=== PATIENT | female | born 1940 ===

== ENCOUNTER 2017-05-20 19:58 | Inpatient (IN) | payer MEDICARE, MEDICAID ==
[2017-05-20 19:59] VITALS: PULSE 115; BMI 29.9
[2017-05-20 20:31] LABS: BASO # 0.1 K/uL (0.0-0.2); EOS % 0.3 % (0.0-4.0); HEMOGLOBIN 12.2 g/dL (11.0-16.0); LYMPH # 1.6 K/uL (1.0-4.3); MEAN CELL VOLUME 96.7 fL (81.0-99.0); MEAN CORPUSCULAR HEMOGLOBIN 30.3 pg (27.0-31.0); MEAN CORPUSCULAR HGB CONC 31.3 g/dL (33.0-37.0); MEAN PLATELET VOLUME 9.7 fL (7.2-11.7); MONO # 1.1 K/uL (0.0-0.8); MONO % 7.9 % (0.0-10.0); NEUT # 10.7 K/uL (1.8-7.0); NEUT % 78.8 % (50.0-75.0); NRBC % 0.3 % (0.0-2.0); RBC 4.04 Mil/uL (3.80-5.20); RED CELL DISTRIBUTION WIDTH 16.2 % (11.5-14.5); WHITE BLOOD COUNT 13.6 K/uL (4.8-10.8)
[2017-05-20 20:43] LABS: ALB/GLOB RATIO 1.2 (1.0-2.1); ALBUMIN 4.1 g/dL (3.5-5.0); ALT/SGPT 128 U/L (9-52); AST/SGOT 90 U/L (14-36); BLOOD UREA NITROGEN 27 mg/dL (7-17); CALCIUM 8.6 mg/dl (8.6-10.4); GFR AFRICAN-AMERICAN > 60; GFR NON-AFRICAN AMERICAN > 60; LIPASE 124 U/L (23-300)
[2017-05-20] MEDS ORDERED: Sodium Chloride 0.9% 1,000 ML IV STA (20:48)
[2017-05-20] MEDS ORDERED: Piperacill/Tazo 4.5gm in Dex 4.5 GM/100 ML BAG IVPB STA (20:48)
--- NOTE | 2017-05-20 21:09 | C.PDOC ---
History Of Present Illness 77 y/o F c PMHx HTN, DM p/w abdominal pain x 1 day. Pain is diffuse, constant, nonradiating. Also reports cough. She denies fever, chills, chest pain, dyspnea , diarrhea. Time Seen by Provider: 05/20/17 20:33 Chief Complaint (Nursing): Abdominal Pain Past Medical History Vital Signs: Last Vital Signs Temp 98.6 F 05/20/17 21:41 Pulse 92 H 05/20/17 22:07 Resp 28 H 05/20/17 22:07 BP 129/87 05/20/17 22:07 Pulse Ox 99 05/20/17 22:07 - Medical History PMH: Arthritis, Asthma, Atrial Fibrillation, CHF, Diabetes, Gastritis, Gall Bladder Disease (s/p surgery), HTN, Hypercholesterolemia, Osteoporosis, Pneumonia Denies: Alzheimer's Disease, HIV, Chronic Kidney Disease Surgical History: Cholecystectomy - [facility] Procedures ASSISTANCE WITH RESPIRATORY VENTILATION, 24-96 HRS, CPAP (03/07/17) CORNEAL REPAIR NEC (02/07/13) INSERTION OF ENDOTRACHEAL AIRWAY INTO TRACHEA, VIA OPENING (03/07/17) INTRODUCE OF OTH THERAP SUBST INTO RESP TRACT, VIA OPENING (04/10/17) PTERYGIUM EXCISION NEC (02/07/13) RESPIRATORY VENTILATION, 24-96 CONSECUTIVE HOURS (03/07/17) Family History: States: Unknown Family Hx - Social History Hx Alcohol Use: No Hx Substance Use: No - Immunization History Hx Tetanus Toxoid Vaccination: Yes Hx Influenza Vaccination: Yes Hx Pneumococcal Vaccination: Yes Review Of Systems Except As Marked, All Systems Reviewed And Found Negative. Constitutional: Negative for: Fever Cardiovascular: Negative for: Chest Pain Physical Exam - Physical Exam Additional Physical Exam Comments: Constitutional: Appears short of breath. Head: Normocephalic. Atraumatic. Eyes: PERRL. EOMI. ENT: Moist mucous membranes. Neck: Supple. Cardiovascular: Tachycardic rate. Radial pulses 2+ bilaterally. Chest: No tenderness. Respiratory: Rhonchi bilaterally. GI: Soft. Tender diffusely. Distended. Umbilical hernia. Back: No CVA tenderness. Musculoskeletal: No tenderness of extremities. Skin: No rash. Neurologic: Alert, no focal deficit. ED Course And Treatment - Laboratory Results Result Diagrams: 05/20/17 20:28 05/20/17 20:28 Medical Decision Making Medical Decision Making: Patient found to be hypoxic on room air. Placed on NRB with pulse ox correcting to 100%. Lactate improved from 6 to 3. HR improved. Patient now on nasal cannula. Ordered BiPap initially but patient refused. Pending CT. Antibiotics empirically given as well as Lasix for CHF. Signed out to ED night team pending CT and disposition for admission. Disposition - Disposition Disposition Time: 01:04 Condition: FAIR Forms: [facility] (Y[place]i) - Clinical Impression Clinical Impression: CHF exacerbation
[2017-05-20 21:26] LABS: SQUAMOUS EPITHIAL 5 /hpf (0-5); URINE BACTERIA RARE (<OCC); URINE BILIRUBIN NEGATIVE (NEGATIVE); URINE CLARITY Hazy (Clear); URINE COLOR Amber (YELLOW); URINE GLUCOSE (UA) 1+ mg/dL (Normal); URINE HYALINE CAST >20 /lpf (0-2); URINE LEUKOCYTE ESTERASE NEG Leu/uL (Negative); URINE NITRATE NEGATIVE (NEGATIVE); URINE PROTEIN 3+ mg/dL (NEGATIVE)
[2017-05-20 21:27] LABS: URINE BLOOD 1+ (NEGATIVE)
[2017-05-20 21:29] LABS: B-TYPE NATRIURETIC PEPTIDE 6670 pg/mL (0-900)
[2017-05-20] MEDS ORDERED: Iodixanol 320 MG/ML 100 ML BOTTLE IV ONE (22:12)
[2017-05-21 00:47] LABS: VENOUS BLOOD GAS BASE EXCESS -0.5 mmol/L (0.0-2.0); VENOUS BLOOD GAS PCO2 51 mmHg (40-60); VENOUS BLOOD GAS PO2 35 mm/Hg (30-55); VENOUS BLOOD PH 7.32 (7.32-7.43)
--- NOTE | 2017-05-21 01:42 | CT ---
EXAM: CT Chest With Intravenous Contrast CT Abdomen and Pelvis With Intravenous Contrast EXAM DATE/TIME: 05/20/2017 8:40 PM CLINICAL HISTORY: 77 years old, female; Pain and signs and symptoms; Abdominal tenderness; Abdominal pain; Shortness of breath; Chest pain; Additional info: Hypoxia, rhonchi, abd pain, nausea TECHNIQUE: Axial computed tomography images of the chest, abdomen and pelvis with intravenous contrast. All CT scans at this facility use one or more dose reduction techniques, viz.: automated exposure control; ma/kV adjustment per patient size (including targeted exams where dose is matched to indication; i.e. head); or iterative reconstruction technique. All CT scans at this facility use one or more dose reduction techniques, viz.: automated exposure control; ma/kV adjustment per patient size (including targeted exams where dose is matched to indication; i.e. head); or iterative reconstruction technique. Coronal and sagittal reformatted images were created and reviewed. CONTRAST: 100 mL of VISI administered intravenously. COMPARISON: No relevant prior studies available. FINDINGS: LIMITATIONS: Moderate streak/motion artifact. CHEST: LUNGS: Scattered, patchy areas of consolidation in the lungs bilaterally, greatest in the left upper lobe and in the right lower lobe, suspicious for a patchy bilateral pneumonia. PLEURAL SPACE: Small right pleural effusion. No pneumothorax is seen. HEART: Heart appears moderately to markedly enlarged. Small amount of fluid in the pericardium on the right, with no evidence of a large circumferential pericardial effusion. Coronary artery calcification. THYROID: Bilateral thyroid nodules incidentally noted. At least 2 are seen, the larger of which measures 6 mm. No followup is necessary for thyroid lesions less than 10 mm, unless otherwise clinically indicated. ABDOMEN: LIVER: Fatty infiltration of the liver. GALLBLADDER AND BILE DUCTS: Cholecystectomy clips. Biliary ductal dilatation, which may be related to the post cholecystectomy state. No radiopaque common bile duct stones are visualized. Recommend correlation with LFTs as clinically indicated. PANCREAS: Small amount of fluid in the right retroperitoneum. This abuts the duodenum, which appears thick walled. It also abuts the pancreatic head. It could be secondary to either duodenitis or acute pancreatitis, involving the pancreatic head. No evidence of diffuse peripancreatic fluid. No evidence of duodenal perforation. SPLEEN: No acute abnormality of the spleen identified. ADRENALS: No acute abnormality of the adrenal glands. KIDNEYS AND URETERS: Bilateral renal scarring. No evidence of hydroureteronephrosis. STOMACH AND BOWEL: Bowel is suboptimally evaluated, due to motion artifact. Small bowel dilatation is noted. Multiple mildly dilated small bowel loops are seen, mainly proximal and mid small bowel loops, and there are multiple decompressed distal small bowel loops seen. Findings are suspicious for a small bowel obstruction. Transition point is probably seen, in a small bowel loop in the right anterior pelvis, where there is a change in caliber of the small bowel, followed by multiple decompressed distal small bowel loops. No definite mass is identified at the transition point. There is no evidence of focal enteritis of the transition point. An adhesive small bowel obstruction could have this appearance. No other definite abnormality of the bowel is seen, allowing for motion artifact. APPENDIX: Appendix is seen, and is within normal limits in appearance. PELVIS: BLADDER: Catheter noted within the bladder lumen. REPRODUCTIVE: Small calcification in the uterus, most likely representing a calcified fibroid. No evidence of large adnexal masses. CHEST, ABDOMEN and PELVIS: INTRAPERITONEAL SPACE: Small amount of free fluid in the abdomen and pelvis. No evidence of free air. BONES/JOINTS: Multiple chronic-appearing vertebral compression fractures. Bony structures appear demineralized. SOFT TISSUES: Mild, diffuse subcutaneous edema/anasarca. VASCULATURE: No evidence of abdominal aortic aneurysm or dissection. LYMPH NODES: No evidence of diffuse lymphadenopathy. IMPRESSION: - Small bowel dilatation, suspicious for a small bowel obstruction. Please see above for a full description. - Small amount of fluid in the right retroperitoneum, which could be secondary to either duodenitis or mild acute pancreatitis, involving the pancreatic head. Recommend correlation with pancreatic enzyme values. - Lung findings suspicious for a patchy bilateral pneumonia. - Small amount of pelvic and abdominal fluid. - Small right pleural effusion. - Diffuse subcutaneous edema/anasarca. - Cardiomegaly. - See above for remaining findings.
[2017-05-21] MEDS ORDERED: Vancomycin 1 gm/NS 200 ml 1 GM/200 ML BAG IVPB STA (03:02)
--- NOTE | 2017-05-21 03:34 | CP.PCM.CON ---
History of Present Illness - History of Present Illness History of Present Illness: General Surgery Consult Note for Dr. Quinones This is a 77F with a PMH of chronic AFib, DM2, HTN, HLD, PVD who presents complaining of abdominal pain. Patient reports a history of abdominal pain for "some time" that got worse to the point that she couldn't tolerate the pain yesterday, prompting her ED visit. Pain was initially in the epigastric area and then became diffuse. Patient has a history of chronic constipation and gastritis; last bowel movement was yesterday. Her bowel movements are normally long and stringy. She has passed gas while in the the ED but states that passing gas is difficult. She felt nauseous yesterday when the pain was particularly intense, but denies any nausea or vomiting right now. Patient notes that her last EGD/colonoscopy was in 2011; results showed gastritis/H. pylori. Patient is Faroese-speaking only and is a poor historian. Translation obtained via nurse at bedside. PMH: chronic AFib, DM2, HTN, HLD, PVD, arthritis, cataracts, glaucoma P[place]: [place] [place] chole[place] ([facility]), eye surgery for cataracts/ glaucoma, EGD/colonoscopy (2011) Medications: Allegies: NKDA Review of Systems - Review of Systems All systems: reviewed and no additional remarkable complaints except - Respiratory Respiratory: Cough - Gastrointestinal Gastrointestinal: Abdominal Pain, Bloating, Constipation, Nausea. absent: Diarrhea, Hematemesis, Hematochezia, Temesmus, Vomiting Past Patient History - Infectious Disease Hx of Infectious Diseases: None - Tetanus Immunizations Tetanus Immunization: Unknown - Past Medical History & Family History Past Medical History?: Yes - Past Social History Smoking Status: Never Smoked - CARDIAC Hx Atrial Fibrillation: Yes Hx Congestive Heart Failure: Yes Hx Hypercholesterolemia: Yes Hx Hypertension: Yes - PULMONARY Hx Asthma: Yes Hx Pneumonia: Yes - NEUROLOGICAL Hx Alzheimer's Disease: No - HEENT Hx HEENT Problems: Yes Hx Cataracts: Yes (left eye) Hx Glaucoma: Yes - RENAL Hx Chronic Kidney Disease: No - ENDOCRINE/METABOLIC Hx Endocrine Disorders: Yes Hx Diabetes Mellitus Type 2: Yes - HEMATOLOGICAL/ONCOLOGICAL Hx Human Immunodeficiency Virus (HIV): No - INTEGUMENTARY Hx Dermatological Problems: No - MUSCULOSKELETAL/RHEUMATOLOGICAL Hx Arthritis: Yes Hx Osteoporosis: Yes - GASTROINTESTINAL Hx Gall Bladder Disease: Yes (s/p surgery) Hx Gastritis: Yes - GENITOURINARY/GYNECOLOGICAL Hx Genitourinary Disorders: No - PSYCHIATRIC Hx Substance Use: No - SURGICAL HISTORY Hx Cholecystectomy: Yes - ANESTHESIA Hx Anesthesia: Yes Hx Anesthesia Reactions: No Hx Malignant Hyperthermia: No Meds Allergies/Adverse Reactions: Allergies Allergy/AdvReac Type Severity Reaction Status Date / Time No Known Allergies Allergy Verified 05/20/17 20:18 - Medications Medications: Current Medications Vancomycin/Sodium Chloride (Vancomycin 1 Gm/Ns 200 Ml) 1 gm in 200 mls @ 133.333 mls/hr IVPB STAT STA Stop: 05/21/17 04:31 Last Admin: 05/21/17 03:07 Dose: 133.333 mls/hr Physical Exam - Constitutional Appears: Non-toxic, No Acute Distress - Head Exam Head Exam: ATRAUMATIC, NORMOCEPHALIC - Eye Exam Eye Exam: EOMI, Normal appearance - ENT Exam ENT Exam: Mucous Membranes Moist - Respiratory Exam Respiratory Exam: Rhonchi, NORMAL BREATHING PATTERN - Cardiovascular Exam Cardiovascular Exam: +S1, +S2 - GI/Abdominal Exam GI & Abdominal Exam: Distended, Hernia, Soft. absent: Guarding, Rebound, Rigid , Tenderness Additional comments: reducible 0.5-1cm umbilical hernia - Neurological Exam Neurological exam: Alert, Oriented x3 - Psychiatric Exam Psychiatric exam: Normal Affect, Normal Mood - Skin Skin Exam: Dry, Intact Results - Vital Signs Recent Vital Signs: Last Vital Signs Temp 98.6 F 05/20/17 21:41 Pulse 92 H 05/20/17 22:07 Resp 28 H 05/20/17 22:07 BP 129/87 05/20/17 22:07 Pulse Ox 99 05/20/17 22:07 - Labs Result Diagrams: 05/20/17 20:28 05/20/17 20:28 Labs: Laboratory Results - last 24 hr 05/20/17 05/20/17 05/20/17 20:28 20:28 20:28 WBC 13.6 H RBC 4.04 Hgb 12.2 Hct 39.0 MCV 96.7 MCH 30.3 MCHC 31.3 L RDW 16.2 H Plt Count 235 MPV 9.7 Neut % (Auto) 78.8 H Lymph % (Auto) 12.0 L Weak[place] % (Auto) 7.9 Eos % (Auto) 0.3 Baso % (Auto) 1.0 Neut # 10.7 H Lymph # 1.6 Weakley # 1.1 H Eos # 0.0 Baso # 0.1 pO2 VBG pH VBG pCO2 VBG HCO3 VBG Total CO2 VBG O2 Sat (Calc) VBG Base Excess VBG Potassium Glucose Lactate Sodium 130 L Potassium 4.4 Chloride 92 L Carbon Dioxide 19 L Anion Gap 23 H BUN 27 H Creatinine 0.9 Est GFR ( Amer) > 60 Est GFR (Non-Af Amer) > 60 Random Glucose 298 H Lactic Acid 6.5 H* Calcium 8.6 Total Bilirubin 0.9 AST 90 H D ALT 128 H Alkaline Phosphatase 166 H D Troponin I < 0.0120 NT-Pro-B Natriuret Pep 6670 H Total Protein 7.6 Albumin 4.1 Globulin 3.5 Albumin/Globulin Ratio 1.2 Lipase 124 Venous Blood Potassium Urine Color Urine Clarity Urine pH Ur Specific [place] Urine Protein Urine Glucose (UA) Urine Ketones Urine Blood Urine Nitrate Urine Bilirubin Urine Urobilinogen Ur Leukocyte Esterase Urine WBC (Auto) Urine RBC (Auto) Ur Squamous Epith Cells Ur Transition Epith Cell Urine Bacteria Hyaline Casts Influenza Typ A,B (EIA) 05/20/17 05/20/17 05/21/17 21:20 21:51 00:40 WBC RBC Hgb Hct MCV MCH MCHC RDW Plt Count MPV Neut % (Auto) Lymph % (Auto) Weak[place] % (Auto) Eos % (Auto) Baso % (Auto) Neut # Lymph # Weak[place] # Eos # Baso # pO2 35 VBG pH 7.32 VBG pCO2 51 VBG HCO3 23.6 VBG Total CO2 27.9 VBG O2 Sat (Calc) 69.0 H VBG Base Excess -0.5 L VBG Potassium 3.8 Glucose 246 H Lactate 3.1 H Sodium 137.0 Potassium Chloride 100.0 Carbon Dioxide Anion Gap BUN Creatinine Est GFR ( Amer) Est GFR (Non-Af Amer) Random Glucose Lactic Acid Calcium Total Bilirubin AST ALT Alkaline Phosphatase Troponin I NT-Pro-B Natriuret Pep Total Protein Albumin Globulin Albumin/Globulin Ratio Lipase Venous Blood Potassium 3.8 Urine Color Margy Urine Clarity Hazy Urine pH 5.0 Ur Specific [place] 1.018 Urine Protein 3+ H Urine Glucose (UA) 1+ Urine Ketones Negative Urine Blood 1+ H Urine Nitrate Negative Urine Bilirubin Negative Urine Urobilinogen 2.0 H Ur Leukocyte Esterase Neg Urine WBC (Auto) 3 Urine RBC (Auto) 7 H Ur Squamous Epith Cells 5 Ur Transition Epith Cell < 1 Urine Bacteria Rare Hyaline Casts >20 H Influenza Typ A,B (EIA) Negative for flu a/b - Imaging and Cardiology CT scan - abdomen Status: Image reviewed by me, Report reviewed by me Assessment & Plan - Assessment and Plan (Free Text) Assessment: 77F presenting with obstructive symptoms NPO Gentle hydration per primary team Replace electrolytes as needed Avoid opiates if possible Serial Abdominal Exams Medical management By Primary Team If nausea or vomiting develops will place NGT D/W Dr. Joni Centeno PGY2
--- NOTE | 2017-05-21 04:33 | CP.PCM.HP ---
<Yessica Luna - Last Filed: 05/21/17 09:03> History of Present Illness - History of Present Illness History of Present Illness: Medicine Note for Hospitalist Service CC: productive cough and abdominal pain HPI: 77 yo Female with PMHx Atrial fibrillation, Hypertension, Dyslipidemia, DM and PVD presents to the ED with productive cough and abdominal pain x 3-5 days. Patient admitted to having fever, chills, headaches, productive cough with yellow phlegm, abdominal pain, nausea, constipation (last BM in 2 days, usually has a daily BM). Patient reports she can pass gas, but feels significant abdominal pain. She did not receive the flu vaccine in 2017, denied any sick contacts, and she lives alone at home. Patient was recently hospitalized in [place] in 04/2017. Denied n/v/d, or urinary symptoms. PMHx: Atrial fibrillation, Hypertension, Dyslipidemia, DM, Constipation and PVD. Last EGD/colonoscopy was in 2011; results showed gastritis/H. pylori. PSHx: ([facility] [place]), cholecystectomy ([place]), eye surgery for cataracts/ glaucoma, EGD/colonoscopy (2011) Meds: Patient does not have a list with her, does not know what she takes All: NKDA SHx: Denied x 3 FHx: Unremarkable Present on Admission - Present on Admission Any Indicators Present on Admission: No Past Patient History - Infectious Disease Hx of Infectious Diseases: None - Tetanus Immunizations Tetanus Immunization: Unknown - Past Medical History & Family History Past Medical History?: Yes - Past Social History Smoking Status: Never Smoked - CARDIAC Hx Atrial Fibrillation: Yes Hx Congestive Heart Failure: Yes Hx Hypercholesterolemia: Yes Hx Hypertension: Yes - PULMONARY Hx Asthma: Yes Hx Pneumonia: Yes - NEUROLOGICAL Hx Alzheimer's Disease: No - HEENT Hx HEENT Problems: Yes Hx Cataracts: Yes (left eye) Hx Glaucoma: Yes - RENAL Hx Chronic Kidney Disease: No - ENDOCRINE/METABOLIC Hx Endocrine Disorders: Yes Hx Diabetes Mellitus Type 2: Yes - HEMATOLOGICAL/ONCOLOGICAL Hx Human Immunodeficiency Virus (HIV): No - INTEGUMENTARY Hx Dermatological Problems: No - MUSCULOSKELETAL/RHEUMATOLOGICAL Hx Arthritis: Yes Hx Osteoporosis: Yes - GASTROINTESTINAL Hx Gall Bladder Disease: Yes (s/p surgery) Hx Gastritis: Yes - GENITOURINARY/GYNECOLOGICAL Hx Genitourinary Disorders: No - PSYCHIATRIC Hx Substance Use: No - SURGICAL HISTORY Hx Cholecystectomy: Yes - ANESTHESIA Hx Anesthesia: Yes Hx Anesthesia Reactions: No Hx Malignant Hyperthermia: No Meds Allergies/Adverse Reactions: Allergies Allergy/AdvReac Type Severity Reaction Status Date / Time No Known Allergies Allergy Verified 05/20/17 20:18 Physical Exam - Constitutional Appears: Toxic, Confused - Head Exam Head Exam: NORMAL INSPECTION, NORMOCEPHALIC - Eye Exam Eye Exam: EOMI, Normal appearance, PERRL Pupil Exam: NORMAL ACCOMODATION - ENT Exam ENT Exam: Mucous Membranes Dry - Respiratory Exam Respiratory Exam: Decreased Breath Sounds, Wheezes - Cardiovascular Exam Cardiovascular Exam: Tachycardia - GI/Abdominal Exam GI & Abdominal Exam: Distended, Normal Bowel Sounds, Soft, Tenderness - Extremities Exam Extremities exam: Positive for: normal inspection, pedal pulses present. Negative for: pedal edema, tenderness - Neurological Exam Neurological exam: Alert, CN II-XII Intact - Skin Skin Exam: Dry, Intact, Normal Color, Warm Results - Vital Signs Recent Vital Signs: Last Vital Signs Temp 98.6 F 05/21/17 03:57 Pulse 98 H 05/21/17 03:57 Resp 22 05/21/17 03:57 BP 118/82 05/21/17 03:57 Pulse Ox 97 05/21/17 03:57 - Labs Result Diagrams: 05/21/17 05:38 05/20/17 20:28 Labs: Laboratory Results - last 24 hr 05/20/17 05/20/17 05/20/17 20:28 20:28 20:28 WBC 13.6 H RBC 4.04 Hgb 12.2 Hct 39.0 MCV 96.7 MCH 30.3 MCHC 31.3 L RDW 16.2 H Plt Count 235 MPV 9.7 Neut % (Auto) 78.8 H Lymph % (Auto) 12.0 L [place] % (Auto) 7.9 Eos % (Auto) 0.3 Baso % (Auto) 1.0 Neut # 10.7 H Lymph # 1.6 [place] # 1.1 H Eos # 0.0 Baso # 0.1 pO2 VBG pH VBG pCO2 VBG HCO3 VBG Total CO2 VBG O2 Sat (Calc) VBG Base Excess VBG Potassium Glucose Lactate Sodium 130 L Potassium 4.4 Chloride 92 L Carbon Dioxide 19 L Anion Gap 23 H BUN 27 H Creatinine 0.9 Est GFR ( Amer) > 60 Est GFR (Non-Af Amer) > 60 Random Glucose 298 H Lactic Acid 6.5 H* Calcium 8.6 Total Bilirubin 0.9 AST 90 H D ALT 128 H Alkaline Phosphatase 166 H D Troponin I < 0.0120 NT-Pro-B Natriuret Pep 6670 H Total Protein 7.6 Albumin 4.1 Globulin 3.5 Albumin/Globulin Ratio 1.2 Lipase 124 Venous Blood Potassium Urine Color Urine Clarity Urine pH Ur Specific Moran Urine Protein Urine Glucose (UA) Urine Ketones Urine Blood Urine Nitrate Urine Bilirubin Urine Urobilinogen Ur Leukocyte Esterase Urine WBC (Auto) Urine RBC (Auto) Ur Squamous Epith Cells Ur Transition Epith Cell Urine Bacteria Hyaline Casts Influenza Typ A,B (EIA) 05/20/17 05/20/17 05/21/17 21:20 21:51 00:40 WBC RBC Hgb Hct MCV MCH MCHC RDW Plt Count MPV Neut % (Auto) Lymph % (Auto) [place] % (Auto) Eos % (Auto) Baso % (Auto) Neut # Lymph # [place] # Eos # Baso # pO2 35 VBG pH 7.32 VBG pCO2 51 VBG HCO3 23.6 VBG Total CO2 27.9 VBG O2 Sat (Calc) 69.0 H VBG Base Excess -0.5 L VBG Potassium 3.8 Glucose 246 H Lactate 3.1 H Sodium 137.0 Potassium Chloride 100.0 Carbon Dioxide Anion Gap BUN Creatinine Est GFR ( Amer) Est GFR (Non-Af Amer) Random Glucose Lactic Acid Calcium Total Bilirubin AST ALT Alkaline Phosphatase Troponin I NT-Pro-B Natriuret Pep Total Protein Albumin Globulin Albumin/Globulin Ratio Lipase Venous Blood Potassium 3.8 Urine Color Margy Urine Clarity Hazy Urine pH 5.0 Ur Specific Moran 1.018 Urine Protein 3+ H Urine Glucose (UA) 1+ Urine Ketones Negative Urine Blood 1+ H Urine Nitrate Negative Urine Bilirubin Negative Urine Urobilinogen 2.0 H Ur Leukocyte Esterase Neg Urine WBC (Auto) 3 Urine RBC (Auto) 7 H Ur Squamous Epith Cells 5 Ur Transition Epith Cell < 1 Urine Bacteria Rare Hyaline Casts >20 H Influenza Typ A,B (EIA) Negative for flu a/b Assessment & Plan - Assessment and Plan (Free Text) Assessment: 77 yo Female with PMHx Atrial fibrillation, Hypertension, Dyslipidemia , DM and PVD presents to the ED with productive cough and abdominal pain x 3-5 days. Plan: Sepsis 2/2 Bilateral Pneumonia Afebrile, tachy, leukocytosis with left shift, lactate 6.5 -> 3.[address] Chest, Abdomen, and Pelvis: small bowel dilatation, suspicious for a small bowel obstruction. Please see above for a full description. Small amount of fluid in the right retroperitoneum, which could be secondary to either duodenitis or mild acute pancreatitis, involving the pancreatic head. Recommend correlation with pancreatic enzyme values. Lung findings suspicious for a patchy bilateral pneumonia. Small amount of pelvic and abdominal fluid. Small right pleural effusion. Diffuse subcutaneous edema/anasarca. Cardiomegaly. Meds: Zosyn, Vanco - f/u trough 05/23 am Janice Cobos SBO Dr. Quinones consulted - help appreciated CT Chest, Abdomen, and Pelvis: small bowel dilatation, suspicious for a small bowel obstruction. Please see above for a full description. Small amount of fluid in the right retroperitoneum, which could be secondary to either duodenitis or mild acute pancreatitis, involving the pancreatic head. Recommend correlation with pancreatic enzyme values. Lung findings suspicious for a patchy bilateral pneumonia. Small amount of pelvic and abdominal fluid. Small right pleural effusion. Diffuse subcutaneous edema/anasarca. Cardiomegaly. Meds: NPO, NS @ 100cc/hr Zosyn, Vanco - f/u trough 05/23 am Transaminitis 90/128 Continue to monitor Hx Afib Hx HTN Hx HLD Hx DM Acchuchecks ISS - low Hx Constipation Prophylactic Measures GI PPX: Protonix 40mg IVP DVT PPX: SCDs, Heparin q12 DW Yessica Mueller DO, PGY-1 <Dwayne Mcginnis - Last Filed: 05/21/17 19:07> Results - Vital Signs Recent Vital Signs: Last Vital Signs Temp 97.2 F L 05/21/17 15:00 Pulse 110 H 05/21/17 15:00 Resp 20 05/21/17 15:00 BP 135/72 05/21/17 17:41 Pulse Ox 95 05/21/17 15:00 - Labs Result Diagrams: 05/21/17 05:38 05/20/17 20:28 Labs: Laboratory Results - last 24 hr 05/20/17 05/20/17 05/20/17 20:28 20:28 20:28 WBC 13.6 H RBC 4.04 Hgb 12.2 Hct 39.0 MCV 96.7 MCH 30.3 MCHC 31.3 L RDW 16.2 H Plt Count 235 MPV 9.7 Neut % (Auto) 78.8 H Lymph % (Auto) 12.0 L [place] % (Auto) 7.9 Eos % (Auto) 0.3 Baso % (Auto) 1.0 Neut # 10.7 H Lymph # 1.6 [place] # 1.1 H Eos # 0.0 Baso # 0.1 Neutrophils % (Manual) Lymphocytes % (Manual) Monocytes % (Manual) Toxic Granulation Platelet Estimate Large Platelets Polychromasia Hypochromasia (manual) Basophilic Stippling Anisocytosis (manual) Macrocytosis (manual) pO2 VBG pH VBG pCO2 VBG HCO3 VBG Total CO2 VBG O2 Sat (Calc) VBG Base Excess VBG Potassium Glucose Lactate Sodium 130 L Potassium 4.4 Chloride 92 L Carbon Dioxide 19 L Anion Gap 23 H BUN 27 H Creatinine 0.9 Est GFR ( Amer) > 60 Est GFR (Non-Af Amer) > 60 POC Glucose (mg/dL) Random Glucose 298 H Hemoglobin A1c Lactic Acid 6.5 H* Calcium 8.6 Total Bilirubin 0.9 AST 90 H D ALT 128 H Alkaline Phosphatase 166 H D Troponin I < 0.0120 NT-Pro-B Natriuret Pep 6670 H Total Protein 7.6 Albumin 4.1 Globulin 3.5 Albumin/Globulin Ratio 1.2 Triglycerides Cholesterol LDL Cholesterol Direct HDL Cholesterol Lipase 124 Venous Blood Potassium Urine Color Urine Clarity Urine pH Ur Specific [place] Urine Protein Urine Glucose (UA) Urine Ketones Urine Blood Urine Nitrate Urine Bilirubin Urine Urobilinogen Ur Leukocyte Esterase Urine WBC (Auto) Urine RBC (Auto) Ur Squamous Epith Cells Ur Transition Epith Cell Urine Bacteria Hyaline Casts Influenza Typ A,B (EIA) 05/20/17 05/20/17 05/21/17 21:20 21:51 00:40 WBC RBC Hgb Hct MCV MCH MCHC RDW Plt Count MPV Neut % (Auto) Lymph % (Auto) [place] % (Auto) Eos % (Auto) Baso % (Auto) Neut # Lymph # [place] # Eos # Baso # Neutrophils % (Manual) Lymphocytes % (Manual) Monocytes % (Manual) Toxic Granulation Platelet Estimate Large Platelets Polychromasia Hypochromasia (manual) Basophilic Stippling Anisocytosis (manual) Macrocytosis (manual) pO2 35 VBG pH 7.32 VBG pCO2 51 VBG HCO3 23.6 VBG Total CO2 27.9 VBG O2 Sat (Calc) 69.0 H VBG Base Excess -0.5 L VBG Potassium 3.8 Glucose 246 H Lactate 3.1 H Sodium 137.0 Potassium Chloride 100.0 Carbon Dioxide Anion Gap BUN Creatinine Est GFR ( Amer) Est GFR (Non-Af Amer) POC Glucose (mg/dL) Random Glucose Hemoglobin A1c Lactic Acid Calcium Total Bilirubin AST ALT Alkaline Phosphatase Troponin I NT-Pro-B Natriuret Pep Total Protein Albumin Globulin Albumin/Globulin Ratio Triglycerides Cholesterol LDL Cholesterol Direct HDL Cholesterol Lipase Venous Blood Potassium 3.8 Urine Color Margy Urine Clarity Hazy Urine pH 5.0 Ur Specific [place] 1.018 Urine Protein 3+ H Urine Glucose (UA) 1+ Urine Ketones Negative Urine Blood 1+ H Urine Nitrate Negative Urine Bilirubin Negative Urine Urobilinogen 2.0 H Ur Leukocyte Esterase Neg Urine WBC (Auto) 3 Urine RBC (Auto) 7 H Ur Squamous Epith Cells 5 Ur Transition Epith Cell < 1 Urine Bacteria Rare Hyaline Casts >20 H Influenza Typ A,B (EIA) Negative for flu a/b 05/21/17 05/21/17 05/21/17 05:38 05:38 05:38 WBC 13.6 H RBC 3.53 L Hgb 10.9 L Hct 33.0 L MCV 93.4 D MCH 31.0 MCHC 33.2 RDW 15.4 H Plt Count 186 MPV 9.9 Neut % (Auto) 81.4 H Lymph % (Auto) 8.2 L [place] % (Auto) 9.6 Eos % (Auto) 0.1 Baso % (Auto) 0.7 Neut # 11.1 H Lymph # 1.1 [place] # 1.3 H Eos # 0.0 Baso # 0.1 Neutrophils % (Manual) 82 H Lymphocytes % (Manual) 9 L Monocytes % (Manual) 9 Toxic Granulation Present Platelet Estimate Normal Large Platelets Present Polychromasia Slight Hypochromasia (manual) Slight Basophilic Stippling Slight Anisocytosis (manual) Slight Macrocytosis (manual) Slight pO2 VBG pH VBG pCO2 VBG HCO3 VBG Total CO2 VBG O2 Sat (Calc) VBG Base Excess VBG Potassium Glucose Lactate Sodium Potassium Chloride Carbon Dioxide Anion Gap BUN Creatinine Est GFR ( Amer) Est GFR (Non-Af Amer) POC Glucose (mg/dL) Random Glucose Hemoglobin A1c 8.2 H D Lactic Acid Calcium Total Bilirubin AST ALT Alkaline Phosphatase Troponin I NT-Pro-B Natriuret Pep Total Protein Albumin Globulin Albumin/Globulin Ratio Triglycerides 49 Cholesterol 84 LDL Cholesterol Direct 59 HDL Cholesterol 17 L Lipase Venous Blood Potassium Urine Color Urine Clarity Urine pH Ur Specific [place] Urine Protein Urine Glucose (UA) Urine Ketones Urine Blood Urine Nitrate Urine Bilirubin Urine Urobilinogen Ur Leukocyte Esterase Urine WBC (Auto) Urine RBC (Auto) Ur Squamous Epith Cells Ur Transition Epith Cell Urine Bacteria Hyaline Casts Influenza Typ A,B (EIA) 05/21/17 05/21/17 05/21/17 08:53 12:00 16:21 WBC RBC Hgb Hct MCV MCH MCHC RDW Plt Count MPV Neut % (Auto) Lymph % (Auto) [place] % (Auto) Eos % (Auto) Baso % (Auto) Neut # Lymph # [place] # Eos # Baso # Neutrophils % (Manual) Lymphocytes % (Manual) Monocytes % (Manual) Toxic Granulation Platelet Estimate Large Platelets Polychromasia Hypochromasia (manual) Basophilic Stippling Anisocytosis (manual) Macrocytosis (manual) pO2 VBG pH VBG pCO2 VBG HCO3 VBG Total CO2 VBG O2 Sat (Calc) VBG Base Excess VBG Potassium Glucose Lactate Sodium Potassium Chloride Carbon Dioxide Anion Gap BUN Creatinine Est GFR ( Amer) Est GFR (Non-Af Amer) POC Glucose (mg/dL) 132 H 110 75 Random Glucose Hemoglobin A1c Lactic Acid Calcium Total Bilirubin AST ALT Alkaline Phosphatase Troponin I NT-Pro-B Natriuret Pep Total Protein Albumin Globulin Albumin/Globulin Ratio Triglycerides Cholesterol LDL Cholesterol Direct HDL Cholesterol Lipase Venous Blood Potassium Urine Color Urine Clarity Urine pH Ur Specific [place] Urine Protein Urine Glucose (UA) Urine Ketones Urine Blood Urine Nitrate Urine Bilirubin Urine Urobilinogen Ur Leukocyte Esterase Urine WBC (Auto) Urine RBC (Auto) Ur Squamous Epith Cells Ur Transition Epith Cell Urine Bacteria Hyaline Casts Influenza Typ A,B (EIA) Assessment & Plan - Date & Time Date: 05/21/17 (I have seen and examined the patient. I agree with the findings and plan of care as documented by Dr. Luna. Patient with sepsis secondary to pneumonia. Sarah. Blood and sputum culture. Monitor vitals closely. Also with SBO. Consult to surgery. Monitor for acute changes. ) Time: 19:06 Attending/Attestation - Attestation I have personally seen and examined this patient.: Yes I have fully participated in the care of the patient.: Yes I have reviewed all pertinent clinical information: Yes
--- NOTE | 2017-05-21 04:34 | PCM.SEPTIC ---
Sepsis Progress Note - Reassessment Type Date of Evaluation: 05/20/17 Time of Evaluation: 22:00 Reassessment Type: Non-invasive reassessment - Non Invasive Reassessment Were the most recent vital sign reviewed: Yes Vital Sign (Latest): Temp Pulse Resp BP Pulse Ox 98.6 F 98 H 22 118/82 97 05/21/17 03:57 05/21/17 03:57 05/21/17 03:57 05/21/17 03:57 05/21/17 03:57 Cardiovascular: Yes: Tachycardia Respiratory: Yes: Decreased Breath Sounds, Wheezing Capillary Refill: Normal (Less than 2 sec) Pulses: Normal Radial, Normal Dorsalis Pedis, Normal Posterior Tibialis Skin: Warm, Dry Fluid Challenge performed: Yes
[2017-05-21] MEDS: Sodium Chloride 0.9% 1,000 ML IV SCH ×2 (05:28→15:00)
[2017-05-21 05:41] LABS: BASO # 0.1 K/uL (0.0-0.2); BASO % 0.7 % (0.0-2.0); EOS % 0.1 % (0.0-4.0); HEMOGLOBIN 10.9 g/dL (11.0-16.0); LYMPH # 1.1 K/uL (1.0-4.3); LYMPH % 8.2 % (20.0-40.0); MEAN CELL VOLUME 93.4 fL (81.0-99.0); MEAN CORPUSCULAR HGB CONC 33.2 g/dL (33.0-37.0); MEAN PLATELET VOLUME 9.9 fL (7.2-11.7); MONO # 1.3 K/uL (0.0-0.8); MONO % 9.6 % (0.0-10.0); NEUT # 11.1 K/uL (1.8-7.0); NEUT % 81.4 % (50.0-75.0); NRBC % 0.1 % (0.0-2.0); PLATELET COUNT 186 K/uL (130-400); RBC 3.53 Mil/uL (3.80-5.20); RED CELL DISTRIBUTION WIDTH 15.4 % (11.5-14.5); WHITE BLOOD COUNT 13.6 K/uL (4.8-10.8)
[2017-05-21] MEDS ORDERED: guaiFENesin 100 mg/5 ml Syrup UD ONE (05:44)
[2017-05-21] MEDS: guaiFENesin 200 mg/10 ml Syrup UD PO PRN ×3 (05:47→17:41)
[2017-05-21] MEDS: Piperacill/Tazo 3.375gm in Dex 3.375 GM/50 ML BAG IVPB SCH ×4 (05:48→22:53)
[2017-05-21] MEDS ORDERED: Acetylcysteine 20% Inhal Soln (4ml) INH ONE (06:00)
[2017-05-21 06:13] LABS: HDL CHOLESTEROL 17 mg/dL (30-70)
[2017-05-21 06:23] LABS: LDL CHOLESTEROL 59 mg/dL (0-129)
--- NOTE | 2017-05-21 07:58 | CP.PCM.PN ---
Subjective - Date & Time of Evaluation Date of Evaluation: 05/21/17 Time of Evaluation: 11:00 - Subjective Subjective: Medicine progress note for Dr. Simons Patient seen and examined at bedside. Patient reports productive cough of green and brown sputum but as of later this morning, her cough has become a dry one. Patient is intermittently short of breath when coughing excessively. She continues to have abdominal pain. Objective - Vital Signs/Intake and Output Vital Signs (last 24 hours): Temp Pulse Resp BP Pulse Ox 98.7 F 111 H 29 H 123/72 94 L 05/21/17 07:45 05/21/17 07:45 05/21/17 07:45 05/21/17 07:45 05/21/17 07:45 Intake and Output: 05/21/17 05/21/17 06:59 18:59 Intake Total 400 Output Total 3300 Balance -2900 - Medications Medications: Current Medications Albuterol/Ipratropium (Duoneb 3 Mg/0.5 Mg (3 Ml) Ud) 3 ml INH RQ6 [facility] Amiodarone HCl (Cordarone) 400 mg PO BID [facility] Docusate Sodium (Colace) 100 mg PO TID [facility] Guaifenesin (Robitussin) 200 mg PO Q4H PRN PRN Reason: Cough and congestion Last Admin: 05/21/17 05:47 Dose: 200 mg Heparin Sodium (Porcine) (Heparin) 5,000 units SC Q12 [facility] Sodium Chloride (Sodium Chloride 0.9%) 1,000 mls @ 100 mls/hr IV .Q10H [facility] Last Admin: 05/21/17 05:28 Dose: 100 mls/hr Piperacillin Sod/Tazobactam Sod (Zosyn 3.375 Gm Iv Premix) 3.375 gm in 50 mls @ 100 mls/hr IVPB Q6H [facility] Last Admin: 05/21/17 05:48 Dose: 100 mls/hr Vancomycin/Sodium Chloride (Vancomycin 1 Gm/Ns 200 Ml) 1 gm in 200 mls @ 166.7 mls/hr IVPB Q24H [facility] Stop: 05/27/17 03:01 Metoprolol Tartrate (Lopressor) 25 mg PO Q6 [facility] Ondansetron HCl (Zofran Inj) 4 mg IVP Q6 PRN PRN Reason: Nausea/Vomiting Rivaroxaban (Xarelto) 20 mg PO QD5 DERIK - Labs Labs: 05/21/17 05:38 05/20/17 20:28 - Constitutional Appears: No Acute Distress - Head Exam Head Exam: ATRAUMATIC, NORMOCEPHALIC - Eye Exam Eye Exam: EOMI, Normal appearance - ENT Exam ENT Exam: Mucous Membranes Moist - Respiratory Exam Respiratory Exam: Decreased Breath Sounds, Rales (upper lung cerrato bilaterally) . absent: Rhonchi, Wheezes - Cardiovascular Exam Cardiovascular Exam: Irregular Rhythm, +S1, +S2 - GI/Abdominal Exam GI & Abdominal Exam: Soft, Normal Bowel Sounds. absent: Distended, Tenderness - Extremities Exam Additional comments: Varicose veins bilaterally. Poor skin turgor - Neurological Exam Neurological Exam: Alert, Awake - Psychiatric Exam Psychiatric exam: Normal Affect, Normal Mood - Skin Skin Exam: Dry, Warm Assessment and Plan - Assessment and Plan (Free Text) Plan: Sepsis 2/2 Bilateral Pneumonia Afebrile, tachy, leukocytosis with left shift, lactate 6.5 -> 3.[address] Chest, Abdomen, and Pelvis: Lung findings suspicious for a patchy bilateral pneumonia. Small amount of pelvic and abdominal fluid. Small right pleural effusion. Diffuse subcutaneous edema/anasarca. Cardiomegaly. * Zosyn 3.375 gm Q6H * Vancomycin 1 gm daily - f/u trough 05/23 am * Robitussin * Duonebs Q6H Scheduled SBO Dr. Quinones consulted - help appreciated CT Chest, Abdomen, and Pelvis: small bowel dilatation, suspicious for a small bowel obstruction. Please see above for a full description. Small amount of fluid in the right retroperitoneum, which could be secondary to either duodenitis or mild acute pancreatitis, involving the pancreatic head. Recommend correlation with pancreatic enzyme values. Lung findings suspicious for a patchy bilateral pneumonia. Small amount of pelvic and abdominal fluid. Small right pleural effusion. Diffuse subcutaneous edema/anasarca. Cardiomegaly. NPO D5 NS @80cc/hr Per surgery, they recommend serial abdominal exams for now. Advancing diet to clear liquids tomorrow AM Transaminitis Continue to monitor Hx Afib Home med Amiodarone 400 mg PO BID Home med Xarelto 20 mg PO Q5D Hx HTN Home med Lopressor 25 mg PO Q6H Hx HLD Home med Crestor 20 mg PO Q5D Hx DM Acchuchecks Q6 while NPO, will need to be switched to ACHS when she starts to eat Regular ISS - low dose Held glipizide for now considering infection Hx Constipation Colace 100 mg PO TID Prophylactic Measures GI PPX: Protonix 40mg IVP DVT PPX: SCDs, Heparin q12 NPO diet Case DW Dr. Ronak Wolf PGY-1
[2017-05-21 09:23] LABS: ANISOCYTOSIS SLIGHT; HYPOCHROMIC SLIGHT; LARGE PLATELETS PRESENT; LYMPHOCYTE 9 % (20-40); MONOCYTE 9 % (0-10); NEUTROPHIL 82 % (50-75); PLATELET ESTIMATE NORMAL (NORMAL); POLYCHROMIC SLIGHT; TOTAL CELLS COUNTED 100; TOXIC GRANULATION PRESENT
--- NOTE | 2017-05-21 10:56 | RAD ---
HISTORY: Shortness of breath COMPARISON: None. FINDINGS: LUNGS: Pulmonary vascular congestion without focal pulmonary parenchymal abnormality. PLEURA: No significant pleural effusion identified, no pneumothorax apparent. CARDIOVASCULAR: Cardiomegaly 80, pulmonary vascular plethora. OSSEOUS STRUCTURES: No significant abnormalities. VISUALIZED UPPER ABDOMEN: Normal. OTHER FINDINGS: None. IMPRESSION: Cardiomegaly/ CHF.
--- NOTE | 2017-05-21 11:20 | CARD ---
APPROVED REPORT EKG Measurement Heart [id number] <Conclusion> Atrial fibrillation Nonspecific T wave abnormality Abnormal ECG
[2017-05-21] MEDS: (Novolin R) Insulin Human Regular 100 units/ml vial SC SCH ×3 (11:30→21:31)
[2017-05-21] MEDS ORDERED: Dextrose 5%/0.9% NS 1,000 ML IV SCH (17:45)
[2017-05-21] MEDS: Dextrose 5%/0.9% NS 1,000 ML IV SCH (18:00)
[2017-05-21] MEDS: Albuterol-Ipratrop 3 mg / 0.5 (3 ml) UD INH SCH (21:10)
[2017-05-22] MEDS: Albuterol-Ipratrop 3 mg / 0.5 (3 ml) UD INH SCH ×4 (01:42→19:41)
[2017-05-22] MEDS: Vancomycin 1 gm/NS 200 ml 1 GM/200 ML BAG IVPB SCH (03:55)
--- NOTE | 2017-05-22 05:16 | CP.PCM.PN ---
<Ashley Warren - Last Filed: 05/22/17 07:16> Subjective - Date & Time of Evaluation Date of Evaluation: 05/22/17 Time of Evaluation: 05:14 - Subjective Subjective: General surgery progress note for Dr. Quinones-Ashley Warren, PGY-1 Pt S & E at bedside. Pt reports irritation at Arroyo- states that she can feel it in her bladder and would like to have it removed. Also states that she is hungry and would like to eat breakfast. Admits to small, hard BM yesterday. Denies N & V, F & C. Asked for food at dinner time, diet was advanced- tolerated PO intake well. Objective - Vital Signs/Intake and Output Vital Signs (last 24 hours): Temp Pulse Resp BP Pulse Ox 98.5 F 95 H 20 110/74 95 05/21/17 23:45 05/21/17 23:45 05/21/17 23:45 05/22/17 00:04 05/21/17 23:45 Intake and Output: 05/21/17 05/22/17 18:59 06:59 Intake Total 700 Output Total 2300 Balance -1600 - Medications Medications: Current Medications Albuterol/Ipratropium (Duoneb 3 Mg/0.5 Mg (3 Ml) Ud) 3 ml INH RQ6 [facility] Last Admin: 05/22/17 01:42 Dose: 3 ml Amiodarone HCl (Cordarone) 400 mg PO BID [facility] Last Admin: 05/21/17 17:41 Dose: 400 mg Docusate Sodium (Colace) 100 mg PO TID [facility] Last Admin: 05/21/17 17:41 Dose: 100 mg Guaifenesin (Robitussin) 200 mg PO Q4H PRN PRN Reason: Cough and congestion Last Admin: 05/21/17 17:41 Dose: 200 mg Heparin Sodium (Porcine) (Heparin) 5,000 units SC Q12 [facility] Last Admin: 05/21/17 22:08 Dose: 5,000 units Piperacillin Sod/Tazobactam Sod (Zosyn 3.375 Gm Iv Premix) 3.375 gm in 50 mls @ 100 mls/hr IVPB Q6H [facility] Last Admin: 05/21/17 22:53 Dose: 100 mls/hr Vancomycin/Sodium Chloride (Vancomycin 1 Gm/Ns 200 Ml) 1 gm in 200 mls @ 166.7 mls/hr IVPB Q24H [facility] Stop: 05/27/17 03:01 Last Admin: 05/22/17 03:55 Dose: 166.7 mls/hr Dextrose/Sodium Chloride (Dextrose 5%/0.9% Ns 1000 Ml) 1,000 mls @ 80 mls/hr IV .[id number] [facility] Last Admin: 05/21/17 18:00 Dose: 80 mls/hr Insulin Human Regular (Novolin R) 0 unit SC ACHS [facility] PRN Reason: Protocol Last Admin: 05/21/17 21:31 Dose: Not Given Metoprolol Tartrate (Lopressor) 25 mg PO Q6 [facility] Last Admin: 05/22/17 00:04 Dose: 25 mg Ondansetron HCl (Zofran Inj) 4 mg IVP Q6 PRN PRN Reason: Nausea/Vomiting Pantoprazole Sodium (Protonix Inj) 40 mg IVP DAILY [facility] Last Admin: 05/21/17 10:16 Dose: 40 mg Pneumococcal Polyvalent Vaccine (Pneumovax 23 Vaccine) 0.5 ml IM .ONCE ONE Stop: 05/22/17 10:36 Rivaroxaban (Xarelto) 20 mg PO QD5 [facility] - Labs Labs: 05/21/17 05:38 05/20/17 20:28 - Constitutional Appears: Non-toxic, No Acute Distress - Head Exam Head Exam: ATRAUMATIC, NORMAL INSPECTION, NORMOCEPHALIC - Eye Exam Eye Exam: EOMI, Normal appearance - ENT Exam ENT Exam: Mucous Membranes Moist, Normal Exam - Neck Exam Neck Exam: Full ROM, Normal Inspection - Respiratory Exam Respiratory Exam: NORMAL BREATHING PATTERN - Cardiovascular Exam Cardiovascular Exam: REGULAR RHYTHM, +S1, +S2 - GI/Abdominal Exam GI & Abdominal Exam: Soft. absent: Distended, Firm, Guarding, Rigid, Tenderness , Rebound - Extremities Exam Extremities Exam: Normal Inspection - Neurological Exam Neurological Exam: Alert, Awake, CN II-XII Intact - Psychiatric Exam Psychiatric exam: Normal Affect, Normal Mood - Skin Skin Exam: Dry, Normal Color, Warm Assessment and Plan - Assessment and Plan (Free Text) Assessment: 77F presenting with obstructive symptoms- resolving Plan: Tolerating CLD Advance diet as sissy Replace electrolytes as needed Avoid opiates if possible Serial Abdominal Exams Further mgmt as per primary team Pt requesting to have Arroyo removed- will defer to primary team DW attending Briana, PGY-1 <Carmelo Mcallister - Last Filed: 05/22/17 09:39> Objective - Vital Signs/Intake and Output Vital Signs (last 24 hours): Temp Pulse Resp BP Pulse Ox 97.4 F L 80 18 132/86 94 L 05/22/17 08:05 05/22/17 08:05 05/22/17 08:05 05/22/17 08:05 05/22/17 08:05 - Medications Medications: Current Medications Albuterol/Ipratropium (Duoneb 3 Mg/0.5 Mg (3 Ml) Ud) 3 ml INH RQ6 [facility] Last Admin: 05/22/17 07:23 Dose: 3 ml Amiodarone HCl (Cordarone) 400 mg PO BID [facility] Last Admin: 05/21/17 17:41 Dose: 400 mg Docusate Sodium (Colace) 100 mg PO TID [facility] Last Admin: 05/21/17 17:41 Dose: 100 mg Guaifenesin (Robitussin) 200 mg PO Q4H PRN PRN Reason: Cough and congestion Last Admin: 05/21/17 17:41 Dose: 200 mg Heparin Sodium (Porcine) (Heparin) 5,000 units SC Q12 [facility] Last Admin: 05/21/17 22:08 Dose: 5,000 units Piperacillin Sod/Tazobactam Sod (Zosyn 3.375 Gm Iv Premix) 3.375 gm in 50 mls @ 100 mls/hr IVPB Q6H [facility] Last Admin: 05/22/17 06:46 Dose: 100 mls/hr Vancomycin/Sodium Chloride (Vancomycin 1 Gm/Ns 200 Ml) 1 gm in 200 mls @ 166.7 mls/hr IVPB Q24H [facility] Stop: 05/27/17 03:01 Last Admin: 05/22/17 03:55 Dose: 166.7 mls/hr Dextrose/Sodium Chloride (Dextrose 5%/0.9% Ns 1000 Ml) 1,000 mls @ 80 mls/hr IV .[id number] [facility] Last Admin: 05/21/17 18:00 Dose: 80 mls/hr Insulin Human Regular (Novolin R) 0 unit SC ACHS [facility] PRN Reason: Protocol Last Admin: 05/22/17 07:44 Dose: Not Given Metoprolol Tartrate (Lopressor) 25 mg PO Q6 [facility] Last Admin: 05/22/17 06:45 Dose: 25 mg Ondansetron HCl (Zofran Inj) 4 mg IVP Q6 PRN PRN Reason: Nausea/Vomiting Pantoprazole Sodium (Protonix Inj) 40 mg IVP DAILY [facility] Last Admin: 05/21/17 10:16 Dose: 40 mg Pneumococcal Polyvalent Vaccine (Pneumovax 23 Vaccine) 0.5 ml IM .ONCE ONE Stop: 05/22/17 10:36 Rivaroxaban (Xarelto) 20 mg PO QD5 [facility] - Labs Labs: 05/22/17 09:07 05/22/17 09:07 Assessment and Plan - Assessment and Plan (Free Text) Plan: Advance diet as tolerating No surgical intervention at this time OK to DC for surgical standpoint.
[2017-05-22] MEDS: Piperacill/Tazo 3.375gm in Dex 3.375 GM/50 ML BAG IVPB SCH ×4 (06:46→23:49)
[2017-05-22] MEDS: (Novolin R) Insulin Human Regular 100 units/ml vial SC SCH ×4 (07:44→21:33)
[2017-05-22 09:13] LABS: BASO % 0.5 % (0.0-2.0); EOS # 0.1 K/uL (0.0-0.7); EOS % 0.7 % (0.0-4.0); LYMPH # 0.7 K/uL (1.0-4.3); LYMPH % 9.2 % (20.0-40.0); MEAN CELL VOLUME 94.7 fL (81.0-99.0); MEAN CORPUSCULAR HEMOGLOBIN 31.1 pg (27.0-31.0); MEAN CORPUSCULAR HGB CONC 32.8 g/dL (33.0-37.0); MEAN PLATELET VOLUME 9.4 fL (7.2-11.7); MONO # 0.9 K/uL (0.0-0.8); MONO % 11.9 % (0.0-10.0); NEUT # 5.9 K/uL (1.8-7.0); NEUT % 77.7 % (50.0-75.0); NRBC % 0.2 % (0.0-2.0); PLATELET COUNT 181 K/uL (130-400); RBC 3.54 Mil/uL (3.80-5.20); WHITE BLOOD COUNT 7.6 K/uL (4.8-10.8)
[2017-05-22 09:31] LABS: ALT/SGPT 101 U/L (9-52); AST/SGOT 58 U/L (14-36); BLOOD UREA NITROGEN 21 mg/dL (7-17); CALCIUM 7.6 mg/dl (8.6-10.4); GFR AFRICAN-AMERICAN > 60; GFR NON-AFRICAN AMERICAN > 60; MAGNESIUM 1.6 mg/dL (1.6-2.3)
[2017-05-22] MEDS: guaiFENesin 200 mg/10 ml Syrup UD PO PRN ×2 (09:43→13:57)
[2017-05-22] MEDS ORDERED: Influenza Vaccine 60 mcg/0.5 mL SYR (4YR UP) IM ONE (10:00)
[2017-05-22] MEDS ORDERED: Pneumococcal 23-Valent Vaccine IM ONE (10:35)
[2017-05-22 11:20] LABS: ANISOCYTOSIS SLIGHT; BANDS 1 % (0-2); EOSINOPHIL 1 % (0-4); LYMPHOCYTE 7 % (20-40); MONOCYTE 11 % (0-10); NEUTROPHIL 80 % (50-75); PLATELET ESTIMATE NORMAL (NORMAL); TOTAL CELLS COUNTED 100
[2017-05-22 11:21] LABS: HYPOCHROMIC SLIGHT; OVALOCYTES SLIGHT; POIKILOCYTOSIS SLIGHT; POLYCHROMIC SLIGHT; TEARDROP CELLS SLIGHT
[2017-05-22] MEDS: Dextrose 5%/0.9% NS 1,000 ML IV SCH ×2 (13:58→21:25)
[2017-05-22 15:45] VITALS: RESP 20
--- NOTE | 2017-05-22 18:08 | CP.PCM.PN ---
Subjective - Date & Time of Evaluation Date of Evaluation: 05/22/17 Time of Evaluation: 08:25 - Subjective Subjective: Medicine progress note for Dr. Simons Patient seen and examined at bedside. Patient reports mildly improved cough productive of yellow/green sputum. When she coughs, she reports feeling SOB; She was encouraged to use the bedside comode. Reports mild suprapubic tenderness after having the tariq catheter removed. Denies dysuria, hematuria, or any additional complaints. Objective - Vital Signs/Intake and Output Vital Signs (last 24 hours): Temp Pulse Resp BP Pulse Ox 98.2 F 101 H 20 123/70 95 05/22/17 15:44 05/22/17 15:44 05/22/17 15:44 05/22/17 17:21 05/22/17 15:44 Intake and Output: 05/22/17 05/22/17 06:59 18:59 Intake Total 640 Balance 640 - Medications Medications: Current Medications Albuterol/Ipratropium (Duoneb 3 Mg/0.5 Mg (3 Ml) Ud) 3 ml INH RQ6 [facility] [place] Last Admin: 05/22/17 13:34 Dose: Not Given Amiodarone HCl (Cordarone) 400 mg PO BID [facility] [place] Last Admin: 05/22/17 17:21 Dose: 400 mg Docusate Sodium (Colace) 100 mg PO TID [facility] Last Admin: 05/22/17 17:21 Dose: 100 mg Guaifenesin (Robitussin) 200 mg PO Q4H PRN PRN Reason: Cough and congestion Last Admin: 05/22/17 13:57 Dose: 200 mg Heparin Sodium (Porcine) (Heparin) 5,000 units SC Q12 [facility] [place] Last Admin: 05/22/17 09:43 Dose: 5,000 units Piperacillin Sod/Tazobactam Sod (Zosyn 3.375 Gm Iv Premix) 3.375 gm in 50 mls @ 100 mls/hr IVPB Q6H [facility] [place] Last Admin: 05/22/17 17:21 Dose: 100 mls/hr Vancomycin/Sodium Chloride (Vancomycin 1 Gm/Ns 200 Ml) 1 gm in 200 mls @ 166.7 mls/hr IVPB Q24H [facility] Stop: 05/27/17 03:01 Last Admin: 05/22/17 03:55 Dose: 166.7 mls/hr Dextrose/Sodium Chloride (Dextrose 5%/0.9% Ns 1000 Ml) 1,000 mls @ 80 mls/hr IV .[id number] [facility] [place] Last Admin: 05/22/17 13:58 Dose: 80 mls/hr Insulin Human Regular (Novolin R) 0 unit SC ACHS [facility] PRN Reason: Protocol Last Admin: 05/22/17 17:22 Dose: 2 unit Metoprolol Tartrate (Lopressor) 25 mg PO Q6 [facility] [place] Last Admin: 05/22/17 17:21 Dose: 25 mg Ondansetron HCl (Zofran Inj) 4 mg IVP Q6 PRN PRN Reason: Nausea/Vomiting Pantoprazole Sodium (Protonix Inj) 40 mg IVP DAILY [facility] [place] Last Admin: 05/22/17 09:42 Dose: 40 mg Rivaroxaban (Xarelto) 20 mg PO QD5 [facility] - Labs Labs: 05/22/17 09:07 05/22/17 09:07 - Additional Findings Additional findings: - Constitutional Appears: No Acute Distress - Head Exam Head Exam: ATRAUMATIC, NORMOCEPHALIC - Eye Exam Eye Exam: EOMI, Normal appearance - ENT Exam ENT Exam: Mucous Membranes Moist - Respiratory Exam Respiratory Exam: Decreased Breath Sounds, Rales, Rhonchi (upper lung cerrato bilaterally). absent: Wheezes - Cardiovascular Exam Cardiovascular Exam: Irregular Rhythm, +S1, +S2 - GI/Abdominal Exam GI & Abdominal Exam: Soft, Normal Bowel Sounds. absent: Distended, Tenderness Note: no suprapubic tenderness appreciated - Extremities Exam Additional comments: Varicose veins bilaterally. Poor skin turgor - Neurological Exam Neurological Exam: Alert, Awake - Psychiatric Exam Psychiatric exam: Normal Affect, Normal Mood - Skin Skin Exam: Dry, Warm Assessment and Plan - Assessment and Plan (Free Text) Assessment: Sepsis 2/2 Bilateral Pneumonia 05/22: WBC 7.6; Afebrile; However congestion remains persistent. Pulm consult placed to Dr. Acevedo, f/u recs. prior: tachy, leukocytosis with left shift, lactate 6.5 -> 3.[address] Chest, Abdomen, and Pelvis: Lung findings suspicious for a patchy bilateral pneumonia. Small amount of pelvic and abdominal fluid. Small right pleural effusion. Diffuse subcutaneous edema/anasarca. Cardiomegaly. * Zosyn 3.375 gm Q6H * Vancomycin 1 gm daily - f/u trough 05/23 am * Robitussin * Duonebs Q6H Scheduled SBO 05/22 no surgery at this time; diet advanced to heart healthy; ok to discharge from surgical standpoint prior: Dr. Quinones consulted - help appreciated CT Chest, Abdomen, and Pelvis: small bowel dilatation, suspicious for a small bowel obstruction. Please see above for a full description. Small amount of fluid in the right retroperitoneum, which could be secondary to either duodenitis or mild acute pancreatitis, involving the pancreatic head. Recommend correlation with pancreatic enzyme values. Lung findings suspicious for a patchy bilateral pneumonia. Small amount of pelvic and abdominal fluid. Small right pleural effusion. Diffuse subcutaneous edema/anasarca. Cardiomegaly. NPO D5 NS @80cc/hr Per surgery, they recommend serial abdominal exams for now. Advancing diet to clear liquids tomorrow AM Transaminitis 05/22: mildly improved; Continue to monitor Hx Afib Home med Amiodarone 400 mg PO BID Home med Xarelto 20 mg PO Q5D Hx HTN Home med Lopressor 25 mg PO Q6H Hx HLD Home med Crestor 20 mg PO Q5D Hx DM Acchuchecks Q6 while NPO, will need to be switched to ACHS when she starts to eat Regular ISS - low dose Held glipizide for now considering infection Hx Constipation Colace 100 mg PO TID Prophylactic Measures GI PPX: Protonix 40mg IVP DVT PPX: SCDs, Heparin q12 NPO diet Case DW Dr. Ronak Sanchez, PGY2
[2017-05-22] MEDS ORDERED: oxyCODONE 5 mg Immediate Release Tab PO PRN (18:54)
--- NOTE | 2017-05-22 20:06 | CP.PCM.CON ---
History of Present Illness - History of Present Illness History of Present Illness: reason for consultation: patchy bilateral infiltrate 77-year-old female with history of hypertension, diabete, peripheral vascular disease, chronic atrial fibrillation who was admitted with abdominal pain. CAT scan of the chest and abdomen suspicious for small bowel obstruction and showed bilateral infiltrate.. Patient denies cough, denies fever chills, denies shortness of breath. PMH: chronic AFib, DM2, HTN, HLD, PVD, arthritis, cataracts, glaucoma PSH: ([facility] [place]), cholecystectomy ([place]), eye surgery for cataracts/ glaucoma, EGD/colonoscopy (2011) Medications: [place]: NKDA Review of Systems - Review of Systems Systems not reviewed;Unavailable: Language Barrier Past Patient History - Infectious Disease Hx of Infectious Diseases: None - Tetanus Immunizations Tetanus Immunization: Unknown - Past Medical History & Family History Past Medical History?: Yes - Past Social History Smoking Status: Unknown If Ever Smoked - CARDIAC Hx Congestive Heart Failure: Yes Hx Hypercholesterolemia: Yes Hx Hypertension: Yes - PULMONARY Hx Asthma: Yes Hx Pneumonia: Yes - NEUROLOGICAL Hx Alzheimer's Disease: No - HEENT Hx HEENT Problems: Yes Hx Cataracts: Yes (left eye) Hx Glaucoma: Yes - RENAL Hx Chronic Kidney Disease: No - ENDOCRINE/METABOLIC Hx Diabetes Mellitus Type 2: Yes - HEMATOLOGICAL/ONCOLOGICAL Hx Human Immunodeficiency Virus (HIV): No - INTEGUMENTARY Hx Dermatological Problems: No - MUSCULOSKELETAL/RHEUMATOLOGICAL Hx Arthritis: Yes - GASTROINTESTINAL Hx Gall Bladder Disease: Yes (s/p surgery) Hx Gastritis: Yes - GENITOURINARY/GYNECOLOGICAL Hx Genitourinary Disorders: No - PSYCHIATRIC Hx Substance Use: No - SURGICAL HISTORY Hx Cholecystectomy: Yes - ANESTHESIA Hx Anesthesia: Yes Hx Anesthesia Reactions: No Hx Malignant Hyperthermia: No Meds Allergies/Adverse Reactions: Allergies Allergy/AdvReac Type Severity Reaction Status Date / Time No Known Allergies Allergy Verified 05/20/17 20:18 - Medications Medications: Current Medications Albuterol/Ipratropium (Duoneb 3 Mg/0.5 Mg (3 Ml) Ud) 3 ml INH RQ6 [facility] Last Admin: 05/22/17 19:41 Dose: 3 ml Amiodarone HCl (Cordarone) 400 mg PO BID [facility] Last Admin: 05/22/17 17:21 Dose: 400 mg Docusate Sodium (Colace) 100 mg PO TID [facility] Last Admin: 05/22/17 17:21 Dose: 100 mg Guaifenesin (Robitussin) 200 mg PO Q4H PRN PRN Reason: Cough and congestion Last Admin: 05/22/17 13:57 Dose: 200 mg Heparin Sodium (Porcine) (Heparin) 5,000 units SC Q12 [facility] Last Admin: 05/22/17 09:43 Dose: 5,000 units Piperacillin Sod/Tazobactam Sod (Zosyn 3.375 Gm Iv Premix) 3.375 gm in 50 mls @ 100 mls/hr IVPB Q6H [facility] Last Admin: 05/22/17 17:21 Dose: 100 mls/hr Vancomycin/Sodium Chloride (Vancomycin 1 Gm/Ns 200 Ml) 1 gm in 200 mls @ 166.7 mls/hr IVPB Q24H [facility] Stop: 05/27/17 03:01 Last Admin: 05/22/17 03:55 Dose: 166.7 mls/hr Dextrose/Sodium Chloride (Dextrose 5%/0.9% Ns 1000 Ml) 1,000 mls @ 80 mls/hr IV .[id number] [facility] Last Admin: 05/22/17 13:58 Dose: 80 mls/hr Insulin Human Regular (Novolin R) 0 unit SC ACHS [facility] PRN Reason: Protocol Last Admin: 05/22/17 17:22 Dose: 2 unit Metoprolol Tartrate (Lopressor) 25 mg PO Q6 [facility] Last Admin: 05/22/17 17:21 Dose: 25 mg Ondansetron HCl (Zofran Inj) 4 mg IVP Q6 PRN PRN Reason: Nausea/Vomiting Oxycodone HCl (Oxycodone Immediate Release Tab) 5 mg PO Q6 PRN PRN Reason: Pain, moderate (4-7) Stop: 05/24/17 18:55 Pantoprazole Sodium (Protonix Inj) 40 mg IVP DAILY [facility] Last Admin: 05/22/17 09:42 Dose: 40 mg Rivaroxaban (Xarelto) 20 mg PO QD5 [facility] Physical Exam - Head Exam Head Exam: ATRAUMATIC, NORMOCEPHALIC - ENT Exam ENT Exam: Mucous Membranes Moist - Neck Exam Neck exam: Positive for: Normal Inspection - Respiratory Exam Respiratory Exam: Clear to Auscultation Bilateral - Cardiovascular Exam Cardiovascular Exam: Irregular Rhythm - Extremities Exam Extremities exam: Positive for: normal inspection Results - Vital Signs Recent Vital Signs: Last Vital Signs Temp 98.2 F 05/22/17 15:44 Pulse 101 H 05/22/17 15:44 Resp 20 05/22/17 15:44 BP 123/70 05/22/17 17:21 Pulse Ox 95 05/22/17 15:44 - Labs Result Diagrams: 05/22/17 09:07 05/22/17 09:07 Labs: Laboratory Results - last 24 hr 05/21/17 05/21/17 05/22/17 19:43 21:15 07:42 WBC RBC Hgb Hct MCV MCH MCHC RDW Plt Count MPV Neut % (Auto) Lymph % (Auto) [place] % (Auto) Eos % (Auto) Baso % (Auto) Neut # Lymph # [place] # Eos # Baso # Neutrophils % (Manual) Band Neutrophils % Lymphocytes % (Manual) Monocytes % (Manual) Eosinophils % (Manual) Platelet Estimate Polychromasia Hypochromasia (manual) Poikilocytosis (manual Anisocytosis (manual) Tear Drop Cells Ovalocytes Sodium Potassium Chloride Carbon Dioxide Anion Gap BUN Creatinine Est GFR ( Amer) Est GFR (Non-Af Amer) POC Glucose (mg/dL) 227 H 146 H Random Glucose Calcium Phosphorus Magnesium Total Bilirubin AST ALT Alkaline Phosphatase Total Protein Albumin Globulin Albumin/Globulin Ratio Procalcitonin 0.24 05/22/17 05/22/17 05/22/17 09:07 09:07 11:19 WBC 7.6 RBC 3.54 L Hgb 11.0 Hct 33.5 L MCV 94.7 MCH 31.1 H MCHC 32.8 L RDW 16.0 H Plt Count 181 MPV 9.4 Neut % (Auto) 77.7 H Lymph % (Auto) 9.2 L [place] % (Auto) 11.9 H Eos % (Auto) 0.7 Baso % (Auto) 0.5 Neut # 5.9 Lymph # 0.7 L [place] # 0.9 H Eos # 0.1 Baso # 0.0 Neutrophils % (Manual) 80 H Band Neutrophils % 1 Lymphocytes % (Manual) 7 L Monocytes % (Manual) 11 H Eosinophils % (Manual) 1 Platelet Estimate Normal Polychromasia Slight Hypochromasia (manual) Slight Poikilocytosis (manual Slight Anisocytosis (manual) Slight Tear Drop Cells Slight Ovalocytes Slight Sodium 136 Potassium 3.6 Chloride 99 Carbon Dioxide 30 Anion Gap 11 BUN 21 H Creatinine 0.6 L Est GFR ( Amer) > 60 Est GFR (Non-Af Amer) > 60 POC Glucose (mg/dL) 235 H Random Glucose 152 H Calcium 7.6 L Phosphorus 2.7 Magnesium 1.6 Total Bilirubin 0.6 AST 58 H D ALT 101 H D Alkaline Phosphatase 94 Total Protein 5.9 L Albumin 3.0 L D Globulin 2.9 Albumin/Globulin Ratio 1.0 Procalcitonin 05/22/17 16:06 WBC RBC Hgb Hct MCV MCH MCHC RDW Plt Count MPV Neut % (Auto) Lymph % (Auto) [place] % (Auto) Eos % (Auto) Baso % (Auto) Neut # Lymph # [place] # Eos # Baso # Neutrophils % (Manual) Band Neutrophils % Lymphocytes % (Manual) Monocytes % (Manual) Eosinophils % (Manual) Platelet Estimate Polychromasia Hypochromasia (manual) Poikilocytosis (manual Anisocytosis (manual) Tear Drop Cells Ovalocytes Sodium Potassium Chloride Carbon Dioxide Anion Gap BUN Creatinine Est GFR ( Amer) Est GFR (Non-Af Amer) POC Glucose (mg/dL) 226 H Random Glucose Calcium Phosphorus Magnesium Total Bilirubin AST ALT Alkaline Phosphatase Total Protein Albumin Globulin Albumin/Globulin Ratio Procalcitonin Assessment & Plan (1) Bilateral pulmonary infiltrates on CXR Assessment and Plan: bilateral infiltrate on CAT scan of chest Patient asymptomatic Normal pro calcitonin level Unlikely pneumonia Status: Acute (2) Chronic atrial fibrillation Status: Acute (3) Small bowel obstruction Status: Acute
--- NOTE | 2017-05-23 00:08 | CARD ---
APPROVED REPORT EKG Measurement Heart [id number] <Conclusion> Atrial fibrillation with rapid ventricular response Nonspecific ST and T wave abnormality Abnormal ECG
[2017-05-23] MEDS: Albuterol-Ipratrop 3 mg / 0.5 (3 ml) UD INH SCH ×3 (01:42→13:14)
[2017-05-23] MEDS: Vancomycin 1 gm/NS 200 ml 1 GM/200 ML BAG IVPB SCH (02:43)
[2017-05-23] MEDS: Dextrose 5%/0.9% NS 1,000 ML IV SCH ×2 (02:45→08:22)
[2017-05-23] MEDS: Piperacill/Tazo 3.375gm in Dex 3.375 GM/50 ML BAG IVPB SCH ×2 (06:05→10:59)
[2017-05-23] MEDS: (Novolin R) Insulin Human Regular 100 units/ml vial SC SCH ×2 (07:39→12:56)
[2017-05-23 08:29] LABS: BASO # 0.1 K/uL (0.0-0.2); BASO % 0.8 % (0.0-2.0); EOS % 0.5 % (0.0-4.0); LYMPH # 0.8 K/uL (1.0-4.3); LYMPH % 10.8 % (20.0-40.0); MEAN CELL VOLUME 95.9 fL (81.0-99.0); MEAN CORPUSCULAR HEMOGLOBIN 31.2 pg (27.0-31.0); MEAN CORPUSCULAR HGB CONC 32.6 g/dL (33.0-37.0); MEAN PLATELET VOLUME 9.8 fL (7.2-11.7); MONO # 0.7 K/uL (0.0-0.8); MONO % 9.8 % (0.0-10.0); NEUT # 5.7 K/uL (1.8-7.0); NEUT % 78.1 % (50.0-75.0); NRBC % 0.5 % (0.0-2.0); RBC 3.51 Mil/uL (3.80-5.20); WHITE BLOOD COUNT 7.3 K/uL (4.8-10.8)
--- NOTE | 2017-05-23 08:50 | CP.PCM.PN ---
Subjective - Date & Time of Evaluation Date of Evaluation: 05/23/17 Time of Evaluation: 08:48 - Subjective Subjective: Surgery Pt s&e. Had small BM. Denies F/C/N/V/D/CP/SOB. Tolerating diet. Objective - Vital Signs/Intake and Output Vital Signs (last 24 hours): Temp Pulse Resp BP Pulse Ox 97.3 F L 57 L 20 124/82 98 05/23/17 08:20 05/23/17 08:20 05/23/17 08:20 05/23/17 08:20 05/23/17 08:20 Intake and Output: 05/23/17 05/23/17 06:59 18:59 Intake Total 1360 Balance 1360 - Medications Medications: Current Medications Albuterol/Ipratropium (Duoneb 3 Mg/0.5 Mg (3 Ml) Ud) 3 ml INH RQ6 [facility] Last Admin: 05/23/17 07:46 Dose: 3 ml Amiodarone HCl (Cordarone) 400 mg PO BID [facility] Last Admin: 05/22/17 17:21 Dose: 400 mg Docusate Sodium (Colace) 100 mg PO TID [facility] Last Admin: 05/22/17 17:21 Dose: 100 mg Guaifenesin (Robitussin) 200 mg PO Q4H PRN PRN Reason: Cough and congestion Last Admin: 05/22/17 13:57 Dose: 200 mg Heparin Sodium (Porcine) (Heparin) 5,000 units SC Q12 [facility] Last Admin: 05/22/17 21:32 Dose: 5,000 units Piperacillin Sod/Tazobactam Sod (Zosyn 3.375 Gm Iv Premix) 3.375 gm in 50 mls @ 100 mls/hr IVPB Q6H [facility] Last Admin: 05/23/17 06:05 Dose: 100 mls/hr Vancomycin/Sodium Chloride (Vancomycin 1 Gm/Ns 200 Ml) 1 gm in 200 mls @ 166.7 mls/hr IVPB Q24H [facility] Stop: 05/27/17 03:01 Last Admin: 05/23/17 02:43 Dose: 166.7 mls/hr Dextrose/Sodium Chloride (Dextrose 5%/0.9% Ns 1000 Ml) 1,000 mls @ 80 mls/hr IV .[id number] [facility] Last Admin: 05/23/17 08:22 Dose: Not Given Insulin Human Regular (Novolin R) 0 unit SC ACHS [facility] PRN Reason: Protocol Last Admin: 05/23/17 07:39 Dose: Not Given Metoprolol Tartrate (Lopressor) 25 mg PO Q6 [facility] Last Admin: 05/23/17 06:06 Dose: 25 mg Ondansetron HCl (Zofran Inj) 4 mg IVP Q6 PRN PRN Reason: Nausea/Vomiting Oxycodone HCl (Oxycodone Immediate Release Tab) 5 mg PO Q6 PRN PRN Reason: Pain, moderate (4-7) Stop: 05/24/17 18:55 Pantoprazole Sodium (Protonix Inj) 40 mg IVP DAILY [facility] Last Admin: 05/22/17 09:42 Dose: 40 mg Polyethylene Glycol (Miralax) 17 gm PO DAILY [facility] Rivaroxaban (Xarelto) 20 mg PO QD5 [facility] - Labs Labs: 05/23/17 08:12 05/22/17 09:07 - Constitutional Appears: No Acute Distress - Head Exam Head Exam: ATRAUMATIC, NORMAL INSPECTION, NORMOCEPHALIC - Eye Exam Eye Exam: EOMI, Normal appearance, PERRL Pupil Exam: NORMAL ACCOMODATION, PERRL - ENT Exam ENT Exam: Mucous Membranes Moist, Normal Exam - Neck Exam Neck Exam: Full ROM, Normal Inspection. absent: Lymphadenopathy - Respiratory Exam Respiratory Exam: Clear to Ausculation Bilateral, NORMAL BREATHING PATTERN - Cardiovascular Exam Cardiovascular Exam: REGULAR RHYTHM, +S1, +S2. absent: Murmur - GI/Abdominal Exam GI & Abdominal Exam: Soft, Normal Bowel Sounds. absent: Distended, Tenderness - Back Exam Back Exam: NORMAL INSPECTION - Neurological Exam Neurological Exam: Alert, Awake, CN II-XII Intact, Normal Gait, Oriented x3 - Psychiatric Exam Psychiatric exam: Normal Affect, Normal Mood - Skin Skin Exam: Dry, Intact, Normal Color, Warm Assessment and Plan - Assessment and Plan (Free Text) Assessment: 77F presenting with obstructive symptoms- resolved Plan: No surgical intervention Ok to DC for surgical standpoint Tolerating reg diet Replace electrolytes as needed Avoid opiates if possible Serial Abdominal Exams Further mgmt as per primary team DC home with stool softer DW Dr. Quinones
[2017-05-23 09:03] LABS: ALB/GLOB RATIO 1.1 (1.0-2.1); ALT/SGPT 97 U/L (9-52); AST/SGOT 50 U/L (14-36); BLOOD UREA NITROGEN 18 mg/dL (7-17); CALCIUM 7.7 mg/dl (8.6-10.4); GFR AFRICAN-AMERICAN > 60; GFR NON-AFRICAN AMERICAN > 60; MAGNESIUM 1.7 mg/dL (1.6-2.3)
[2017-05-23] MEDS ORDERED: POLYETHYLENE GLYCOL 3350 17 GM/Dose PACKET PO SCH (10:00)
[2017-05-23] MEDS: guaiFENesin 200 mg/10 ml Syrup UD PO PRN (11:07)
[2017-05-23] MEDS ORDERED: Potassium & Sodium Phosphate PO SCH (14:00)
[2017-05-23 15:57] VITALS: BP 129/71; PULSE 77; TEMP 98.2; O2SAT 95
--- NOTE | 2017-05-23 20:43 | CP.PCM.DIS ---
Provider - Provider Date of Admission: 05/21/17 02:32 Attending physician: Dwayne Mcginnis MD Primary care physician: none Consults: General Surgery - Dr. Quinones Pulmonology - Dr. Acevedo Time Spent in preparation of Discharge (in minutes): 30 Hospital Course - Lab Results Lab Results: Micro Results 05/20/17 21:15 Blood-Venous Blood Culture - Preliminary NO GROWTH AFTER 48 HOURS 05/20/17 21:00 Blood-Venous Blood Culture - Preliminary NO GROWTH AFTER 48 HOURS 05/20/17 21:32 Urine,Clean Catch Urine Culture - Final 10-50,000 CFU/ML. MULTIPLE SPECIES. PROBABLE CONTAMINATION. Most Recent Lab Values WBC 7.3 K/uL (4.8-10.8) 05/23/17 08:12 RBC 3.51 Mil/uL (3.80-5.20) L 05/23/17 08:12 Hgb 11.0 g/dL (11.0-16.0) 05/23/17 08:12 Hct 33.6 % (34.0-47.0) L 05/23/17 08:12 MCV 95.9 fL (81.0-99.0) 05/23/17 08:12 MCH 31.2 pg (27.0-31.0) H 05/23/17 08:12 MCHC 32.6 g/dL (33.0-37.0) L 05/23/17 08:12 RDW 16.0 % (11.5-14.5) H 05/23/17 08:12 Plt Count 184 K/uL (130-400) 05/23/17 08:12 MPV 9.8 fL (7.2-11.7) 05/23/17 08:12 Neut % (Auto) 78.1 % (50.0-75.0) H 05/23/17 08:12 Lymph % (Auto) 10.8 % (20.0-40.0) L 05/23/17 08:12 [place] % (Auto) 9.8 % (0.0-10.0) 05/23/17 08:12 Eos % (Auto) 0.5 % (0.0-4.0) 05/23/17 08:12 Baso % (Auto) 0.8 % (0.0-2.0) 05/23/17 08:12 Neut # 5.7 K/uL (1.8-7.0) 05/23/17 08:12 Lymph # 0.8 K/uL (1.0-4.3) L 05/23/17 08:12 [place] # 0.7 K/uL (0.0-0.8) 05/23/17 08:12 Eos # 0.0 K/uL (0.0-0.7) 05/23/17 08:12 Baso # 0.1 K/uL (0.0-0.2) 05/23/17 08:12 Neutrophils % (Manual) 80 % (50-75) H 05/22/17 09:07 Band Neutrophils % 1 % (0-2) 05/22/17 09:07 Lymphocytes % (Manual) 7 % (20-40) L 05/22/17 09:07 Monocytes % (Manual) 11 % (0-10) H 05/22/17 09:07 Eosinophils % (Manual) 1 % (0-4) 05/22/17 09:07 Toxic Granulation Present 05/21/17 05:38 Platelet Estimate Normal (NORMAL) 05/22/17 09:07 Large Platelets Present 05/21/17 05:38 Polychromasia Slight 05/22/17 09:07 Hypochromasia (manual) Slight 05/22/17 09:07 Poikilocytosis (manual Slight 05/22/17 09:07 Basophilic Stippling Slight 05/21/17 05:38 Anisocytosis (manual) Slight 05/22/17 09:07 Macrocytosis (manual) Slight 05/21/17 05:38 Tear Drop Cells Slight 05/22/17 09:07 Ovalocytes Slight 05/22/17 09:07 pO2 35 mm/Hg (30-55) 05/21/17 00:40 VBG pH 7.32 (7.32-7.43) 05/21/17 00:40 VBG pCO2 51 mmHg (40-60) 05/21/17 00:40 VBG HCO3 23.6 mmol/L 05/21/17 00:40 VBG Total CO2 27.9 mmol/L (22-28) 05/21/17 00:40 VBG O2 Sat (Calc) 69.0 % (40-65) H 05/21/17 00:40 VBG Base Excess -0.5 mmol/L (0.0-2.0) L 05/21/17 00:40 VBG Potassium 3.8 mmol/L (3.6-5.2) 05/21/17 00:40 Sodium 137.0 mmol/l (132-148) 05/21/17 00:40 Chloride 100.0 mmol/L (98-107) 05/21/17 00:40 Glucose 246 mg/dl (65-105) H 05/21/17 00:40 Lactate 3.1 mmol/L (0.7-2.1) H 05/21/17 00:40 Sodium 136 mmol/L (132-148) 05/23/17 08:12 Potassium 3.9 mmol/L (3.6-5.2) 05/23/17 08:12 Chloride 100 mmol/L (98-107) 05/23/17 08:12 Carbon Dioxide 30 mmol/L (22-30) 05/23/17 08:12 Anion Gap 10 (10-20) 05/23/17 08:12 BUN 18 mg/dL (7-17) H 05/23/17 08:12 Creatinine 0.5 mg/dL (0.7-1.2) L 05/23/17 08:12 Est GFR ( Amer) > 60 05/23/17 08:12 Est GFR (Non-Af Amer) > 60 05/23/17 08:12 POC Glucose (mg/dL) 320 mg/dL (65-110) H 05/23/17 11:28 Random Glucose 153 mg/dL (65-105) H 05/23/17 08:12 Hemoglobin A1c 8.2 % (4.2-6.5) H D 05/21/17 05:38 Lactic Acid 1.3 mmol/L (0.7-2.1) 05/21/17 19:43 Calcium 7.7 mg/dl (8.6-10.4) L 05/23/17 08:12 Phosphorus 2.3 mg/dL (2.5-4.5) L 05/23/17 08:12 Magnesium 1.7 mg/dL (1.6-2.3) 05/23/17 08:12 Total Bilirubin 0.7 mg/dL (0.2-1.3) 05/23/17 08:12 AST 50 U/L (14-36) H 05/23/17 08:12 ALT 97 U/L (9-52) H 05/23/17 08:12 Alkaline Phosphatase 93 U/L (38-126) 05/23/17 08:12 Troponin I < 0.0120 ng/mL (0.00-0.120) 05/20/17 20:28 NT-Pro-B Natriuret Pep 6670 pg/mL (0-900) H 05/20/17 20:28 Total Protein 5.7 g/dL (6.3-8.3) L 05/23/17 08:12 Albumin 3.0 g/dL (3.5-5.0) L 05/23/17 08:12 Globulin 2.7 gm/dL (2.2-3.9) 05/23/17 08:12 Albumin/Globulin Ratio 1.1 (1.0-2.1) 05/23/17 08:12 Triglycerides 49 mg/dL (0-149) 05/21/17 05:38 Cholesterol 84 mg/dL (0-199) 05/21/17 05:38 LDL Cholesterol Direct 59 mg/dL (0-129) 05/21/17 05:38 HDL Cholesterol 17 mg/dL (30-70) L 05/21/17 05:38 Lipase 124 U/L (23-300) 05/20/17 20:28 Procalcitonin 0.24 NG/ML (0.19-0.49) 05/21/17 19:43 Venous Blood Potassium 3.8 mmol/L (3.6-5.2) 05/21/17 00:40 Urine Color Margy (YELLOW) 05/20/17 21:20 Urine Clarity Hazy (Clear) 05/20/17 21:20 Urine pH 5.0 (5.0-8.0) 05/20/17 21:20 Ur Specific [place] 1.018 (1.003-1.030) 05/20/17 21:20 Urine Protein 3+ mg/dL (NEGATIVE) H 05/20/17 21:20 Urine Glucose (UA) 1+ mg/dL (Normal) 05/20/17 21:20 Urine Ketones Negative mg/dL (NEGATIVE) 05/20/17 21:20 Urine Blood 1+ (NEGATIVE) H 05/20/17 21:20 Urine Nitrate Negative (NEGATIVE) 05/20/17 21:20 Urine Bilirubin Negative (NEGATIVE) 05/20/17 21:20 Urine Urobilinogen 2.0 mg/dL (0.2-1.0) H 05/20/17 21:20 Ur Leukocyte Esterase Neg Nael/uL (Negative) 05/20/17 21:20 Urine WBC (Auto) 3 /hpf (0-5) 05/20/17 21:20 Urine RBC (Auto) 7 /hpf (0-3) H 05/20/17 21:20 Ur Squamous Epith Cells 5 /hpf (0-5) 05/20/17 21:20 Ur Transition Epith Cell < 1 /hpf (0-3) 05/20/17 21:20 Urine Bacteria Rare (<OCC) 05/20/17 21:20 Hyaline Casts >20 /lpf (0-2) H 05/20/17 21:20 Influenza Typ A,B (EIA) Negative for flu a/b (NEGATIVE) 05/20/17 21:51 - Hospital Course Hospital Course: Upon hospital admission: This 77 yo Female with PMHx Atrial fibrillation, Hypertension, Dyslipidemia, DM and PVD presents to the ED with productive cough and abdominal pain x 3-5 days. Patient admitted to having fever , chills, headaches, productive cough with yellow phlegm, abdominal pain, nausea , constipation (last BM in 2 days, usually has a daily BM). Patient reports she can pass gas, but feels significant abdominal pain. She did not receive the flu vaccine in 2017, denied any sick contacts, and she lives alone at home. Patient was recently hospitalized in [place] in 04/2017. Denied n/v/d, or urinary symptoms. During hospital course, the patient was evaluated and treated for the following : (1) Sepsis 2/2 Bilateral Pneumonia - over the course of her stay, the WBC normalized and the patient remained afebrile. She responded well to Zosyn 3.375 gm Q6H and Vancomycin 1 gm daily. Her Lactate normalized with tx. Influenza was negative. CT Chest, Abdomen, and Pelvis: Lung findings suspicious for a patchy bilateral pneumonia. Small amount of pelvic and abdominal fluid. Small right pleural effusion. Diffuse subcutaneous edema/anasarca. Cardiomegaly. She was evaluated by Pulmonology, Dr. Acevedo, who did not feel she had pneumonia. (2) SBO - CT Chest, Abdomen, and Pelvis: small bowel dilatation, suspicious for a small bowel obstruction. Lung findings suspicious for a patchy bilateral pneumonia. Small amount of pelvic and abdominal fluid. Small right pleural effusion. Diffuse subcutaneous edema/anasarca. Cardiomegaly. Patient was made NPO, placed on D5 NS @80cc/hr, and evaluated by surgery team. Her diet was slowly advanced, and ultimately Dr. Quinones (surgery) determined that the patient was advancing well, not requiring surgery. She was deemed stable from a surgical standpoint. She was also treated with Colace due to constipation symptoms. Her home med were also continued for her Hx of Afib, HTN, HLD, and DM. The patient did well during this admission, responded well to treatment, and was deemed stable for discharge. Upon hospital discharge, the patient was provided with the following instructions: Patient is stable for discharge per Dr. Simnos. Patient should resume all medications as outlined in this document. Additionally, patient should take the new medications listed below (scripts provided). 1. Please make an appointment and follow up with your Primary Doctor within one week of discharge. If patient does not have a Primary Doctor, please follow up with [facility] to establish medical care, at [phone]. 2. You were treated for a mild bowel obstruction, however your obstructive symptoms have resolved. Please take an OTC Stool softener such as Colace 100mg orally, 2 times per day, only when you are having difficulty passing stool. Also , eat soft food for the next 5 days and please limit your food consumption to small portions. 3. Take the antibiotic below to help clear your Pneumonia symptoms. Patient should return to ED immediately if symptoms return or worsen. Instructions discussed with patient who understood and agreed. Newly prescribed medications: Cefdinir 300mg PO BID #20 (take twice daily for 10 days) This is a summary of the patient's hospital admission, see chart for comprehensive detail. - Date & Time of H&P Date of H&P: 05/21/17 Time of H&P: 04:33 Discharge Exam - Additional Findings Additional findings: - Constitutional Appears: No Acute Distress - Head Exam Head Exam: ATRAUMATIC, NORMOCEPHALIC - Eye Exam Eye Exam: EOMI, Normal appearance - ENT Exam ENT Exam: Mucous Membranes Moist - Respiratory Exam Respiratory Exam: Normal Breath Sounds. absent: Wheezes, Rales, Rhonchi - Cardiovascular Exam Cardiovascular Exam: Regular Rhythm, +S1, +S2 - GI/Abdominal Exam GI & Abdominal Exam: Soft, Normal Bowel Sounds. absent: Distended, Tenderness - Extremities Exam Additional comments: Varicose veins bilaterally. - Neurological Exam Neurological Exam: Alert, Awake - Psychiatric Exam Psychiatric exam: Normal Affect, Normal Mood - Skin Skin Exam: Dry, Warm, Intact Discharge Plan - Discharge Medications Prescriptions: Cefdinir [Omnicef] 300 mg PO BID #20 cap - Follow Up Plan Condition: FAIR Disposition: HOME/ ROUTINE Instructions: Cefdinir (By mouth), Heart Failure (DC), Bowel Obstruction (DC) Additional Instructions: Patient is stable for discharge per Dr. Simons. Patient should resume all medications as outlined in this document. Additionally, patient should take the new medications listed below (scripts provided). 1. Please make an appointment and follow up with your Primary Doctor within one week of discharge. If patient does not have a Primary Doctor, please follow up with [facility] to establish medical care, at [phone]. 2. You were treated for a mild bowel obstruction, however your obstructive symptoms have resolved. Please take an OTC Stool softener such as Colace 100mg orally, 2 times per day, only when you are having difficulty passing stool. Also , eat soft food for the next 5 days and please limit your food consumption to small portions. 3. Take the antibiotic below to help clear your Pneumonia symptoms. Patient should return to ED immediately if symptoms return or worsen. Instructions discussed with patient who understood and agreed. Newly prescribed medications: Cefdinir 300mg PO BID #20 (take twice daily for 10 days) El paciente est estable para el troy por Dr. Simons. El paciente debe reanudar todos los medicamentos baljinder se describe en rosemary documento. Adems, el paciente debe francesco los nuevos medicamentos enumerados a continuacin (se proporcionan los scripts). 1. Chary genna adriana y chary un seguimiento con tam mdico de cabecera dentro de genna semana del troy. Si el paciente no tiene un Mdico de Atencin Primaria, por favor chary un seguimiento con [facility] para establecer atencin mdica, santodo al [phone]. 2. Usted fue tratado por genna obstruccin intestinal leve, sin embargo, cate s ntomas obstructivos se kam resuelto. Ballantine un suavizador de heces de venta rosanna baljinder Colace 100 mg por va oral, 2 veces por da, solo cuando tenga dificultades para defecar. Adems, coma alimentos blandos mayra los prximos 5 baeza y limite el consumo de alimentos a porciones pequeas. 3. Ballantine el antibitico a continuacin para ayudar a aclarar cate sntomas de neumona. El paciente debe regresar a la emily de urgencias inmediatamente si los sntomas reaparecen o empeoran. Instrucciones discutidas con el paciente que entendi y estuvo de acuerdo. Medicamentos recin recetados: Cefdinir 300mg PO BID # 20 (francesco dos veces al da mayra 10 baeza)
== END 2017-05-23 18:29 | disposition home or self-care (01) | DRG 871 ==
LOC: C.ER 19:58 → C.9E 05-21 02:32 → C.5S 05-21 06:50
PROVIDERS: ADMIT Family Medicine; ATTEND Family Medicine
DX: A41.9 Sepsis, unspecified organism (principal); J18.9 Pneumonia, unspecified organism; K56.609 Unspecified intestinal obstruction, unspecified as to partial versus complete obstruction; I11.0 Hypertensive heart disease with heart failure; E11.51 Type 2 diabetes mellitus with diabetic peripheral angiopathy without gangrene; I48.2 Chronic atrial fibrillation; I50.9 Heart failure, unspecified; E78.00 Pure hypercholesterolemia, unspecified; E78.5 Hyperlipidemia, unspecified; H40.9 Unspecified glaucoma; J45.909 Unspecified asthma, uncomplicated; M81.0 Age-related osteoporosis without current pathological fracture; Z79.01 Long term (current) use of anticoagulants; Z87.01 Personal history of pneumonia (recurrent); Z90.49 Acquired absence of other specified parts of digestive tract; Z79.4 Long term (current) use of insulin